=== PATIENT | female | born 1995 | race Caucasian/White ===

== ENCOUNTER → 2024-04-16 10:49 | Outpatient (REF) | payer BC, SELFPAY | LOC: HWRAD 10:49 | PROVIDERS: ATTENDING PHYSICIAN Nurse Practitioner Family | DX: R94.6 Abnormal results of thyroid function studies (principal) | CPT/HCPCS: 76536 ==

== ENCOUNTER → 2025-04-23 10:11 | Outpatient (REF) | payer BC, SELFPAY | LOC: PAVMRI 10:11 | PROVIDERS: ATTENDING PHYSICIAN Nurse Practitioner Family; FAMILY PHYSICIAN Family Medicine | DX: E22.9 Hyperfunction of pituitary gland, unspecified (principal) | CPT/HCPCS: 70553; A9575 ==